=== PATIENT | male | born 1950 | race Caucasian/White ===

== ENCOUNTER 2021-05-11 12:04 | Observation (INO) | payer BC, MEDICARE ==
[~2021-05-11] VITALS: Ht 177.8 cm; Wt 76.7 kg
[~2021-05-11 12:04] MED LIST: B-1100 MG PO; Blood pressure med; FOLIC ACID 11 MG/TA1 PO; HCTZ 25MG TAB25 MG PO; TENORMIN100 MG PO; THERAGRAN1 TA1 PO; ZYLOPRIM 300MG300 MG PO
[2021-05-11 12:10] VITALS: BP 180/80; PULSE 63; TEMP 97.7
[2021-05-11] MEDS ORDERED: LIPITOR 40MG TA40 MG PO (12:56)
[2021-05-11] MEDS ORDERED: VASOTEC20 MG PO (12:57)
[2021-05-11] MEDS ORDERED: NORVASC 5MG5 MG/TAB PO (12:58)
[2021-05-11 14:58] LABS: BASO % 0.4 % (0.0-2.0); EOS % 0.4 % (0-4.0); GRAN % 75.5 % (42.2-75.2); HEMATOCRIT 38.3 % (42.0-52.0); HEMOGLOBIN 13.9 g/dl (13.5-18.0); LYMPH # 1.1 K/mm3 (1.2-3.4); LYMPH % 13.9 % (20.0-51.0); MEAN CELL VOLUME 89 fl (80.0-100.0); MEAN CORPUSCULAR HEMOGLOBIN 32 pg (27.0-31.0); MEAN CORPUSCULAR HGB CONC 36 g/dl (33.0-37.0); MEAN PLATELET VOLUME 9.2 fl (7.4-10.4); MONO # 0.8 K/mm3 (0.1-0.6); MONO % 9.5 % (1.7-9.3); PLATELET COUNT 217 K/mm3 (130-400); REDCELL DISTRIBUTION WIDTH-CV 11.6 % (11.5-14.5)
[2021-05-11 15:04] LABS: INR 1.1 (0.8-3.0); PROTHROMBIN TIME 12.2 SECONDS (9.7-12.8)
[2021-05-11 15:07] LABS: PARTIAL THROMBOPLASTIN TIME 24.8 SECONDS (26.0-37.0)
[2021-05-11 15:13] LABS: ALBUMIN 3.4 gm/dL (3.4-4.8); CALCIUM 9.1 mg/dL (8.4-10.2); CREATININE, serum 0.8 mg/dL (0.72-1.25); POTASSIUM 4.1 mmol/L (3.5-4.5)
--- NOTE | 2021-05-11 19:25 | NUR ---
PT ARRIVED TO MEDICAL FLOOR BY WHEELCHAIR WITH TONA BORJA FROM ED. PT DENIES ANY PAIN, HAS NO COMPLAINTS. ETOH PROTOCOL IN PLACE. PT IS IN YELLOW G[place], REFUSED TO PUT ON THE YELLOW SOCKS, BUT THEY ARE AVAILABLE AND IN THE PATIENT'S ROOM. PT ASSESSMENT COMPLETED; PT DOES STATE HE HAS ANXIETY. PER DETOX PROTOCOL PATIENT SCORED 4 AND RECEIVED 0.5MG ATIVAN. PT IS AGREEABLE, AND WILLING TO BE COOPERATIVE WITH TREATMENT. NO OTHER CONCERNS; REPORT GIVEN TO TONA SPENCER.
--- NOTE | 2021-05-11 20:00 | NUR ---
Assessment complete. Patient is alert and oriented with no complaints of pain. Patient is afebrile and no tremors are observed. Gait is steady. Lungs clear and HR normal/regular; BLE dependent edema is noted with no pitting. Bed alarm set and call light in reach.
[2021-05-11 20:11] VITALS: BP 158/59; PULSE 69; TEMP 98.3
[2021-05-12] VITALS: BP 132/59; PULSE 63; TEMP 97.6
--- NOTE | 2021-05-12 00:32 | NUR ---
Patient up to bathroom at this time. He has had little sleep tonight. No tremors present; vital signs stable. Patient does call appropriately. No new concerns, will continue to monitor.
[2021-05-12 04:00] VITALS: BP 133/64; PULSE 68; TEMP 98.1
[2021-05-12 06:55] LABS: BASO % 0.4 % (0.0-2.0); EOS % 0.9 % (0-4.0); GRAN # 2.7 K/mm3 (1.4-6.5); GRAN % 57.9 % (42.2-75.2); HEMOGLOBIN 12.1 g/dl (13.5-18.0); LYMPH # 1.2 K/mm3 (1.2-3.4); LYMPH % 26.3 % (20.0-51.0); MEAN CELL VOLUME 91 fl (80.0-100.0); MEAN CORPUSCULAR HEMOGLOBIN 33 pg (27.0-31.0); MEAN CORPUSCULAR HGB CONC 36 g/dl (33.0-37.0); MEAN PLATELET VOLUME 9.7 fl (7.4-10.4); MONO # 0.7 K/mm3 (0.1-0.6); MONO % 14.1 % (1.7-9.3); PLATELET COUNT 158 K/mm3 (130-400); RED BLOOD COUNT 3.67 M/mm3 (4.20-5.60); REDCELL DISTRIBUTION WIDTH-CV 11.7 % (11.5-14.5)
[2021-05-12 06:57] LABS: HEMATOCRIT 33.3 % (42.0-52.0)
[2021-05-12 07:16] LABS: CALCIUM 8.2 mg/dL (8.4-10.2); CREATININE, serum 0.66 mg/dL (0.72-1.25); MAGNESIUM 1.8 mg/dL (1.6-2.6); POTASSIUM 3.3 mmol/L (3.5-4.5)
[2021-05-12 07:32] VITALS: BP 132/55; PULSE 63; TEMP 97.9
--- NOTE | 2021-05-12 09:20 | NUR ---
PT REPORTING ANXIETY, REQUESTING PRN ATIVAN.
[2021-05-12 10:32] VITALS: BP 155/53; PULSE 75; TEMP 97.4
--- NOTE | 2021-05-12 11:07 | NUR ---
The hospitalist notified CARMELO that he has medically cleared the patient and would like him screened by [facility]. CARMELO contacted and faxed the patient's records to [facility]. Awaiting Zoom meeting information. CARMELO met with the patient to discuss discharge plan. The patient lives alone in an apartment in [place]. 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 He reports independence with ADLs and does not have any DME. The patient's PCP is Dr. Jacinto Squires and he receives his medications from [facility]. He reports no difficulties obtaining his meds. The patient does not have a DPOA-HC and he was not interested in completing one at this time. The patient states that he is not , does not have any children, and that his parents are . He reports that he has 5 half brothers, but that he has not talked to them in years and not close with them. The patient reports that he really does not have anyone. He states that he needs some time to think about who he would want to designate as his DPOA-HC. He reports that there is woman at [employer] that informed him that she will help him complete a DPOA-HC, when he is ready to complete one. The patient plans to return home upon discharge. The patient has a history of alcohol use. He has been drinking 4-5 beers daily. CARMELO addressed his alcohol use and discussed inpatient/outpatient treatment. The patient reports that he interested in quitting drinking and would be interested in AA meetings. CARMELO provided the patient with a list of [facility] AA meetings and outpatient treatment. SW to continue to follow. *Discharge plan: home, awaiting [facility]'s screen*
[2021-05-12 11:45] VITALS: BP 136/57; PULSE 58; TEMP 97.6
--- NOTE | 2021-05-12 12:07 | NUR ---
PT ALERT AND ORIENTED. CIWA FOR MORNING ASSESSMENT AT 2. PT EXPRESSES ANXIETY. PT LUNGS CLEAR TO AUSCULTATION. PT POSTERIOR TIBIAL PULSES 1+ BILATERALLY, CAP REFILL <3S. PT DENIES PAIN AT THIS TIME, CALL LIGHT WITHIN REACH.
--- NOTE | 2021-05-12 13:20 | NUR ---
CALL RECEIVED FROM SOLO AT [facility] SCREEN. SOLO, THERAPIST VERIFIED CLEARED BY JAEL, NO SUICIDE IDEATION AT THIS TIME. WILL PASS ON TO SOCIAL WORK.
--- NOTE | 2021-05-12 13:52 | NUR ---
NOTIFIED ELIZABETH ROBLES OF [facility] CLEARED.
--- NOTE | 2021-05-12 13:52 | NUR ---
[facility] collaborated with the patient's RN on setting up the Zoom meeting. [facility] screened the patient. The patient's RN notified CARMELO that [facility] cleared him and they faxed over Patient Registration Forms. CARMELO contacted [facility] and confirmed the above. [facility] reports that the forms are for the patient to complete and that he will need to return them to [facility]. They plan on doing outpatient services with him. CARMELO met with the patient and updated him on the above. The patient verbalized understanding and asked that CARMELO place the forms in his discharge folder. The patient's RN and the PA were updated.
[2021-05-12] MEDS ORDERED: LEXAPRO 10MG10 MG PO (14:18)
[2021-05-12] MEDS ORDERED: XANAX 0.5MG0.5 MG PO (14:19)
[2021-05-12 16:40] VITALS: BP 167/64; PULSE 66; TEMP 97.8
--- NOTE | 2021-05-12 18:31 | NUR ---
PT DISCHARGED. FOLLOW UP APPOINTMENTS AND MEDICATION EDUCATION PROVIDED TO BEST OF ABILITY . IV DISCONTINUED. PT WALKED DOWN AT THIS TIME BY [employer] EMPLOYEE.
== END 2021-05-12 18:33 | disposition home or self-care (01) ==
LOC: MEDICAL 14:21
PROVIDERS: ADMIT Internal Medicine
DX: F10.10 Alcohol abuse, uncomplicated (principal); F32.A Depression, unspecified; E87.1 Hypo-osmolality and hyponatremia; G31.84 Mild cognitive impairment of uncertain or unknown etiology; E11.9 Type 2 diabetes mellitus without complications; E78.5 Hyperlipidemia, unspecified; G93.40 Encephalopathy, unspecified; Z79.899 Other long term (current) drug therapy
CPT/HCPCS: 99222-AI; G0378; J1650; J2060; J3411; J7030

== ENCOUNTER → 2021-08-10 | Outpatient (CLI) | payer BC, MEDICARE ==
[~2021-08-10] MED LIST changes: +LEXAPRO 10MG10 MG PO; +LIPITOR 40MG TA40 MG PO; +NORVASC 5MG5 MG/TAB PO; +VASOTEC20 MG PO; +XANAX 0.5MG0.5 MG PO
[2021-08-10 16:28] LABS: COLLECTION METHOD CLEAN CATCH
[2021-08-10 16:34] LABS: BASO % 0.6 % (0.0-2.0); EOS # 0.1 K/mm3 (0.0-0.7); EOS % 0.9 % (0.0-4.0); GRAN # 4.8 K/mm3 (1.4-6.5); GRAN % 70.9 % (42.2-75.2); HEMATOCRIT 38.3 % (42.0-52.0); HEMOGLOBIN 12.6 g/dl (13.5-18.0); LYMPH # 1.3 K/mm3 (1.2-3.4); LYMPH % 19.1 % (20.0-51.0); MEAN CELL VOLUME 93 fl (80.0-100.0); MEAN CORPUSCULAR HEMOGLOBIN 31 pg (27-31); MEAN CORPUSCULAR HGB CONC 33 g/dl (33.0-37.0); MONO # 0.6 K/mm3 (0.1-0.6); MONO % 8.2 % (1.7-9.3); PLATELET COUNT 221 K/mm3 (130-400); RED BLOOD COUNT 4.13 M/mm3 (4.20-5.60); REDCELL DISTRIBUTION WIDTH-CV 12.1 % (11.5-14.5)
[2021-08-10 16:47] LABS: ALBUMIN 3.8 gm/dL (3.4-4.8); BILIRUBIN,TOTAL 0.5 mg/dL (0.2-1.2); CALCIUM 9.1 mg/dL (8.4-10.2); CREATININE, serum 0.81 mg/dL (0.72-1.25); POTASSIUM 3.9 mmol/L (3.5-4.5); TOTAL PROTEIN 6.8 gm/dL (6.2-8.1)
[2021-08-10 17:22] LABS: AMORPHOUS CRYSTAL Present (NOT PRESENT); PH 5 (5-8); SQUAMOUS EPITHELIAL None Seen /hpf (0-10); URINE APPEARANCE Turbid (CLEAR/HAZY); URINE BACTERIA None Seen /hpf (NONE SEEN); URINE BILIRUBIN Negative (NEGATIVE); URINE BLOOD Negative (NEGATIVE); URINE CALCIUM OXALATE CRYSTAL Present (NOT PRESENT); URINE COLOR Amber (YELLOW); URINE GLUCOSE Negative (NEGATIVE); URINE KETONE Negative (NEGATIVE); URINE LEUKOCYTE ESTERASE Negative (NEGATIVE); URINE NITRATE Negative (NEGATIVE); URINE PROTEIN(semi-quant) Negative (NEGATIVE); URINE RBC None Seen /hpf (0-2)
== END ==
LOC: ZCOL.LAB 14:29
PROVIDERS: Internal Medicine
DX: I10 Essential (primary) hypertension (principal); F10.20 Alcohol dependence, uncomplicated; F41.9 Anxiety disorder, unspecified